=== PATIENT | female | born 1970 | race Caucasian/White ===

== ENCOUNTER 2017-05-11 08:12 | Outpatient (CLI) | payer MEDICAID ==
[~2017-05-11] VITALS: Ht 154.9 cm; Wt 67.3 kg
--- NOTE | ~2017-05-11 | HEMODYNAMI ---
PATIENT:MANJIT JEAN MEDICAL RECORD: [id number] : 68 LOCATION:[facility] D.2116 ADMISSION DATE: 05/11/17 Generatedon:05/12/201710:27 Patient name: MANJIT JEAN Patient #: [id number] SSN: DO B: 1970 Date of study: 05/12/2017 Page: Of Hemodynamic Procedure Report Patient Data Patient Demographics Procedure consent was obtained First Name: MANJIT Gender: Female Last Name: MIRANDA : 1970 [facility] Initial: DEVORA Age: 46 year(s) Patient #: [id number] Race: Additional ID: [id number] Contact details Address: [address] [place] [address] State: [place] City: [place] Zip code: [address] Admission Admission Data Admission Date: 05/11/2017 Admission Time: 8:12 Room #: D.2116 Lab Results Lab Result Date: 05/11/2017 Lab Result Time: 0:00 Biochemistry Name Units Result Min Max BUN mg/dl 11 --(-*--)-- 7 18 Creatinine mg/dl 1.3 --(---*)-- 0.6 1.3 CBC Name Units Result Min Max Hemoglobin g/dl 13.7 --(*---)-- 13.5 17.5 Procedure Procedure Types Cath Procedure PCI Procedure Coronary Stent Initial Miscellaneous Procedures Moderate Sedation up to 15 minutes Procedure Description Procedure Date Procedure Date: 05/12/2017 Procedure Start Time: 10:14 Procedure End Time: 10:26 Procedure Staff Name Function Jonathan Peña MD Performing Physician Jefferson Schreiber RT Scrub Saravanan Saravia RN Nurse Puja Chapman RT Monitor Procedure Data Cath Procedure Fluoroscopy Diagnostic fluoroscopy Total fluoroscopy Time: 0.9 time: 0.9 min min Diagnostic fluoroscopy Total fluoroscopy dose: 157 dose: 157 mGy mGy Contrast Material Contrast Material Type Amount (ml) Isovue 300 25 Entry Location Entry Primary Successful Side Size Upsize Upsize Entry Closure Succes sful Closure Location (Fr) 1 (Fr) 2 (Fr) Remarks Device Remarks Femoral Right 6 Fr Exoseal artery Short Estimated blood loss: 5 ml Procedure Complications No complications Procedure Medications Medication Administration Route Dosage Oxygen NC 2 l/min Heparin Flush Bag added to field 2 bags (1000units/500ml NS) 0.9% NaCl I.V. 100 ml/hr Fentanyl I.V. 50 mcg Versed I.V. 1 mg Fentanyl I.V. 50 mcg Versed I.V. 1 mg Heparin Bolus I.V. 4000 units Hemodynamics Rest HGB: 13.7 (g/dl) Heart Rate: 67 (bpm) Snapshots Pre Cath Intra NCS Post Cath Vital Signs Time Heart Resp SPO2 NIBP (mmHg) Rhythm Pain Sedation Rate (ipm) (%) Status Level (bpm) 9:58:38 67 16 90 123/78(98) NSR 0 (11) 10(A) , No pain 10:02:44 65 18 97 130/77(97) NSR 0 (11) 10(A) , No pain 10:06:54 68 18 93 123/74(89) NSR 0 (11) 10(A) , No pain 10:11:03 68 17 93 105/69(86) NSR 0 (11) 10(A) , No pain 10:15:01 73 17 95 122/79(100) NSR 0 (11) 9(A) , No pain 10:19:07 75 17 93 112/77(92) NSR 0 (11) 9(A) , No pain 10:23:11 73 16 95 115/73(87) NSR 0 (11) 9(A) , No pain Medications Time Medication Route Dose Verified Delivered Reason Notes Effectiveness by by 10:05:04 Oxygen NC 2 Saravanan Coe Per physician l/min Manjit Saravia RN RN 10:05:13 Heparin Flush added 2 Saravanan Coe used for Bag to bags Manjit Saravia RN procedure (1000units/500ml field RN NS) 10:05:22 0.9% NaCl I.V. 100 Saravanan Saravanan Per physician ml/hr Manjit Saravia RN RN 10:05:35 Fentanyl I.V. 50 Saravanan Coe for sedation mcg Manjit Saravia RN RN 10:05:41 Versed I.V. 1 mg Saravanan Coe for sedation Manjit Saravia RN RN 10:14:24 Fentanyl I.V. 50 Saravanan Saravanan for sedation mcg Manjit Saravia RN RN 10:14:29 Versed I.V. 1 mg Saravanan Coe for sedation Manjit Saravia RN RN 10:15:48 Heparin Bolus I.V. 4000 Saravanan Coe for units Manjit Saravia RN anticoagulation human resource consultant Log Time Note 9:37:10 Puja Counts RT(R) sent for patient. Start room use. 9:37:11 Time tracking: Regular hours 9:37:15 Plan of Care:Hemodynamics will remain stable., Cardiac rhythm will remain stable., Comfort level will be maintained., Respiratory function will remain adequate., Patient/ family verbilizes understanding of procedure., Procedure tolerated without complication., Recovers from procedure without complications.. 9:47:23 Patient received from PCU to CCL 2 Alert and oriented. Tansferred to table in Supine position. 9:47:24 Warm blankets applied, and bayron hugger turned on for patient comfort. 9:47:25 Correct patient and procedure confirmed by team. 9:47:26 Signed procedure consent form obtained from patient. 9:47:29 ECG and BP/O2 sat monitors applied to patient. 9:57:31 Vital chart was started 9:57:32 Full Disclosure recording started 9:57:35 Rhythm: sinus rhythm 9:57:46 H&P Date Dictated: 05/06/2017 Within 30 days and on chart., H&P Addendum completed by physician on day of procedure. (MUST COMPLETE FOR ALL OUTPATIENTS). 9:57:48 Pre-procedure instructions explained to patient. 9:57:48 Pre-op teaching completed and patient verbalized understanding. 9:57:50 Family in patients room. 9:57:52 Patient NPO since Midnight. 9:57:56 Is the patient allergic to Iodine/contrast media? No. 9:57:57 Is patient on blood thinner?Yes 9:58:00 ACC The patient was administered the following blood thiners within the last 24 hours: ACCPlavix 9:58:14 Patient diabetic? Yes. 9:58:20 If diabetic: On Metformin? Yes 9:58:25 If on Metformin: Last Dose? 05/08/2017 9:58:28 Previous problem with sedation/anesthesia? No ? 9:58:29 Snore? Yes 9:58:30 Sleep apnea? No 9:58:31 Deviated septum? No 9:58:32 Opens mouth fully? Yes 9:58:33 Sticks out tongue? Yes 9:58:35 Airway obstruction? No ? 9:58:36 Dentures? No ? 9:58:39 Pre procedure: right dorsailis pedis pulse 2+ Normal; easily identifiable; not easily obliterated 9:58:40 Patient pain scale 0/10 ?. 9:58:48 IV patent on arrival in left hand with 0.9% NaCl at [facility]. 9:58:51 Lab results completed and on chart. 9:58:54 Right groin area was prepped with chlora-prep and draped in sterile fashion 9:58:55 Alarms reviewed by R. N. 9:58:55 Sharps counted by scrub and verified by R.N. 9:58:58 Use device set Femoral PCI 9:58:59 Acist Syringe opened to sterile field. 9:58:59 Acist Hand Control opened to sterile field. 9:59:00 Bag Decanter opened to sterile field. 9:59:00 Medline Cath Pack opened to sterile field. 9:59:00 Terumo 6Fr Magalia Sheath opened to sterile field. 9:59:01 St Spencer 260cm J .035 wire opened to sterile field. 9:59:01 Merit BasixCompak Inflation Kit opened to sterile field. 9:59:01 Acist Manifold opened to sterile field. 9:59:02 Tegaderm 4 x 4 opened to sterile field. 10:04:04 Final Timeout: patient, procedure, and site verified with staff and physician. All members of the team are in agreement. 10:04:06 Right groin site verified by team. 10:04:08 Physical assessment completed. ASA score P 2 - A patient with mild systemic disease as per Jonathan Peña MD. 10:04:10 Sedation plan: IV Moderate Sedation Versed, Fentanyl 10:05:04 Oxygen 2 l/min NC was administered by Saravanan Saravia RN; Per physician; 10:05:13 Heparin Flush Bag (1000units/500ml NS) 2 bags added to field was administered by Saravanan Saravia RN; used for procedure; 10:05:22 0.9% NaCl 100 ml/hr I.V. was administered by Saravanan Saravia RN; Per physician; 10:05:35 Fentanyl 50 mcg I.V. was administered by Saravanan Saravia RN; for sedation; 10:05:41 Versed 1 mg I.V. was administered by Saravanan Saravia RN; for sedation; 10:05:55 Zero performed for pressure channel P1 10:06:00 Zero performed for pressure channel P1 10:06:12 Baseline sample Acquired. 10:14:24 Fentanyl 50 mcg I.V. was administered by Saravanan Saravia RN; for sedation; 10:14:29 Versed 1 mg I.V. was administered by Saravanan Saravia RN; for sedation; 10:14:35 Procedure started. 10:14:37 Local anesthetic to right femoral artery with Lidocaine 2% by Jonathan Peña MD.INITIAL ACCESS ONLY 10:14:44 Cordis 6FR XBLAD 3.5 guide catheter opened to sterile field. 10:14:55 A 6 Fr Short sheath was inserted into the Right Femoral artery 10:15:28 6 Fr XBLAD 3.5 guide catheter was inserted over the wire 10:15:48 Heparin Bolus 4000 units I.V. was administered by Saravanan Saravia RN; for anticoagulation; 10:16:51 Whisper wire advanced. 10:18:09 Inflation Number: 1 A Medtronic Integrity 2.5 x 14 stent was prepped and advanced across the Prox CX. The stent was deployed at 15 BAKARI for 0:08 (min:sec). 10:18:20 Stent catheter was removed intact over wire. 10:18:21 Wire removed. 10:18:21 Guide catheter removed. 10:18:29 Sheath removed intact; hemostasis achieved with Exoseal to the Right Femoral artery. 10:18:36 Cordis 6Fr Exoseal opened to sterile field. 10:18:39 Procedure ended.(Physican Out) 10:19:02 Fluoroscopy time 00.90 minutes. 10:19:05 Flurop Dose total: 157 10:19:05 Fluoroscopy dose: 157 mGy 10:19:08 Contrast amount:Isovue 300 25ml. 10:19:09 Sharps counted by scrub and verified by R.N. 10:19:10 Insertion/operative site no bleeding no hematoma. 10:19:13 Post-op/insertion site Right Femoral artery dressed using a 4 x 4 and Tegaderm. 10:20:28 Post right femoral artery:stable, clean and dry 10:20:29 Post Procedure Pulses reassessed and unchanged 10:20:36 Post-procedure physical assessment completed. ASA score P 2 - A patient with mild systemic disease as per Jonathan Peña MD. 10:20:38 Post procedure rhythm: unchanged. 10:20:43 Estimated blood loss: 5 ml 10:20:44 Post procedure instruction explained to patient.Patient verbalizes understanding. 10:20:44 Patient needs reinforcement of post procedure teaching. 10:20:56 Procedure type changed to Cath procedure, PCI procedure, Coronary Stent Initial, Miscellaneous Procedures, Moderate Sedation up to 15 minutes 10:21:01 Procedure Complication : No complications 10:21:03 See physician's report for complete and final results. 10:21:38 Garcia Whisper J 300cm 0.014 guide wire opened to sterile field. 10:21:59 Procedure and supply charges have been captured, reviewed, submitted and are correct. 10:26:27 Vital chart was stopped 10:26:41 Report given to PCU. 10:26:44 Patient transfered to PCU with Bed. 10:26:46 Procedure ended. 10:26:46 Full Disclosure recording stopped 10:26:51 End room use (Document Last) Intervention Summary Intervention Notes Time ActionType Lesion and Equipment Action# Pressure Duration Attributes Used 10:18:09 Place stent Prox CX Medtronic 1 15 00:08 Integrity 2.5 x 14 stent Device Usage Item Name Manufacture Quantity Catalog Hospital Part Current Minimal L ot# / Number Charge Number Stock Stock Serial# Code Acist Acist 1 27747 236407 858556 169349 20 Syringe Medical [employer] Inc Acist Hand Acist 1 56423 917251 302594 856090 5 Control [employer] Inc Bag Microtek 1 2002S 360328 49014 328797 5 Global [employer] Inc. Medline Cardinal 1 [id number] 038610 83262 016437 5 Cath [employer] Terumo 6Fr Terumo 1 [id number] 316165 525009 072876 [address] Spencer 1 [id number] 064515 926962 789096 30 260cm J .035 wire Merit Merit 1 [id number] 053155 302816 741215 15 [facility] Medical Inflation Kit Acist Acist 1 39809 486158 103871 468709 5 [employer] Inc Tegaderm 4 3M 1 1626W 119639 614680 708914 5 x 4 Cordis 6FR Cardinal 1 [id number] 470511 591909 333436 10 XBLAD 3.5 Health guide catheter Medtronic Medtronic 1 [id number] 059872 860845 1 0 [id number] Integrity 2.5 x 14 stent Cordis 6Fr Cardinal 1 EX600 304820 527720 951190 10 [facility] Garcia 1 [id number] 067845 973629 834947 5 [facility] J Vascular 300cm 0.014 guide wire Signature Audit Mancos Stage Time Signature Unsigned Intra-Procedure 05/12/2017 Puja 10:27:05 AM Counts RT(R) Signatures Monitor : Puja Signature : Counts RT Date : Time : [id number] [place] [address]
--- NOTE | ~2017-05-11 | HEMODYNAMI ---
PATIENT:MANJIT JEAN MEDICAL RECORD: [id number] : 68 LOCATION:D.CAT ADMISSION DATE: 05/11/17 Generatedon:05/11/201713:03 Patient name: MANJIT JEAN Patient #: [id number] SSN: DO B: 1970 Date of study: 05/11/2017 Page: Of Hemodynamic Procedure Report Patient Data Patient Demographics Procedure consent was obtained First Name: MANJIT Gender: Female Last Name: MIRANDA : 1970 [facility] Initial: DEVORA Age: 46 year(s) Patient #: [id number] Race: Unknown Additional ID: [id number] Contact details Address: [address] [place] [address] State: [place] City: [place] Zip code: [address] Admission Admission Data Admission Date: 05/11/2017 Admission Time: 8:12 Lab Results Lab Result Date: 05/11/2017 Lab Result Time: 0:00 Biochemistry Name Units Result Min Max BUN mg/dl 11 --(-*--)-- 7 18 Creatinine mg/dl 1.3 --(---*)-- 0.6 1.3 CBC Name Units Result Min Max Hemoglobin g/dl 13.7 --(*---)-- 13.5 17.5 Procedure Procedure Types Cath Procedure Diagnostic Procedure [facility] w/Coronaries PCI Procedure Coronary Stent Initial Miscellaneous Procedures Moderate Sedation up to 15 minutes Procedure Description Procedure Date Procedure Date: 05/11/2017 Procedure Start Time: 12:32 Procedure End Time: 13:03 Procedure Staff Name Function Jonathan Peña MD Performing Physician Saravanan Saravia RN Nurse Duke Dunn RT Monitor Gay Gutierrez RT Scrub Procedure Data Cath Procedure Fluoroscopy Diagnostic fluoroscopy Total fluoroscopy Time: 3.2 time: 3.2 min min Diagnostic fluoroscopy Total fluoroscopy dose: 730 dose: 730 mGy mGy Contrast Material Contrast Material Type Amount (ml) Isovue 300 86 Entry Location Entry Primary Successful Side Size Upsize Upsize Entry Closure Ramírez ccessful Closure Location (Fr) 1 (Fr) 2 (Fr) Remarks Device Remarks Radial Right 6 Fr Mechanical artery Short Compression Estimated blood loss: 10 ml Diagnostic catheters Device Type Used For End Catheter Placement Diagnostic Terumo 5Fr Procedure Rollingstone 110cm catheter Procedure Complications No complications Procedure Medications Medication Administration Route Dosage Oxygen NC 2 l/min Heparin Flush Bag added to field 2 bags (1000units/500ml NS) 0.9% NaCl I.V. 100 ml/hr Radial Cocktail added to field 1 syringe (Verapomil 2mg/Nitro 400mcg/Heparin 1500units) Fentanyl I.V. 50 mcg Versed I.V. 1 mg Fentanyl I.V. 50 mcg Versed I.V. 1 mg Radial Cocktail I.A. 1 syringe (Verapomil 2mg/Nitro 400mcg/Heparin 1500units) Heparin Bolus I.V. 4000 units Integrilin (Bolus I.V. 6.2 ml 2mg/ml) Integrilin (Bolus wasted 3.8 ml 2mg/ml) Plavix P.O. 600 mg Hemodynamics Rest HGB: 13.7 (g/dl) Heart Rate: 69 (bpm) Snapshots Pre Cath Intra NCS Post Cath Vital Signs Time Heart Resp SPO2 NIBP (mmHg) Rhythm Pain Sedation Rate (ipm) (%) Status Level (bpm) 12:22:09 70 18 93 122/80(92) NSR 0 (11) 10(A) , No pain 12:26:21 68 17 94 121/74(111) NSR 0 (11) 10(A) , No pain 12:30:29 71 20 95 112/67(80) NSR 0 (11) 9(A) , No pain 12:34:43 74 20 96 99/51(85) NSR 0 (11) 9(A) , No pain 12:39:01 69 21 94 96/48(76) NSR 0 (11) 9(A) , No pain 12:43:09 67 19 94 94/52(75) NSR 0 (11) 9(A) , No pain 12:47:19 67 20 95 98/47(67) NSR 0 (11) 10(A) , No pain 12:51:27 72 10 95 111/56(89) NSR 0 (11) 10(A) , No pain 12:55:38 71 18 92 108/62(82) NSR 0 (11) 10(A) , No pain 12:59:48 70 13 94 110/62(81) NSR 0 (11) 10(A) , No pain Medications Time Medication Route Dose Verified Delivered Reason Note s Effectiveness by by 12:21:56 Oxygen NC 2 l/min Saravanan Coe Per physician Manjit Saravia RN RN 12:22:04 Heparin Flush added 2 bags Saravanan Coe used for Bag to Manjit Saravia RN procedure (1000units/500ml field RN NS) 12:22:12 0.9% NaCl I.V. 100 Saravanan Saravanan Per physician ml/hr Manjit Saravia RN RN 12:22:27 Radial Cocktail added 1 Saravanan Crooky used for (Verapomil to syringe Manjit Saravia RN procedure 2mg/Nitro field RN 400mcg/Heparin 1500units) 12:28:38 Fentanyl I.V. 50 mcg Saravanan Crooky for sedation Manjit Saravia RN RN 12:28:44 Versed I.V. 1 mg Saravanan Crooky for sedation Manjit Saravia RN RN 12:31:25 Fentanyl I.V. 50 mcg Saravanan Coe for sedation Manjit Saravia RN RN 12:31:28 Versed I.V. 1 mg Saravanan Coe for sedation Manjit Saravia RN RN 12:33:27 Radial Cocktail I.A. 1 Saravanan Maravillarey for (Verapomil syringe Manjit Peña MD vasodilation 2mg/Nitro RN 400mcg/Heparin 1500units) 12:39:36 Heparin Bolus I.V. 4000 Saravanan Coe for units Manjit Saravia RN anticoagulation RN 12:40:41 Integrilin I.V. 6.2 ml Saravanan Coe for (Bolus 2mg/ml) Manjit Saravia RN antiplatelet RN therapy 12:40:51 Integrilin wasted 3.8 ml Saravanan Coe for (Bolus 2mg/ml) Manjit Saravia RN antiplatelet RN therapy 12:46:44 Plavix P.O. 600 mg Saravanan Coe for Manjit Saravia RN antiplatelet RN therapy Procedure Log Time Note 11:55:56 Saravanan Saravia RN sent for patient. Start room use. 12:02:57 Time tracking: Regular hours 12:03:00 Plan of Care:Hemodynamics will remain stable., Cardiac rhythm will remain stable., Comfort level will be maintained., Respiratory function will remain adequate., Patient/ family verbilizes understanding of procedure., Procedure tolerated without complication., Recovers from procedure without complications.. 12:04:21 H&P Date Dictated: 05/06/2017 Within 30 days and on chart., H&P Addendum completed by physician on day of procedure. (MUST COMPLETE FOR ALL OUTPATIENTS). 12::42 Lab Result : Creatinine 1.3 mg/dl 12::42 Lab Result : BUN 11 mg/dl 12::42 Lab Result : Hemoglobin 13.7 g/dl 12:05:51 Lab results completed and on chart. 12:17:32 Patient received from Pre/Post Procedure Room to CCL 1 Alert and oriented. Tansferred to table in Supine position. 12:17:33 Warm blankets applied, and bayron hugger turned on for patient comfort. 12:17:33 Correct patient and procedure confirmed by team. 12:17:34 Signed procedure consent form obtained from patient. 12:17:35 ECG and BP/O2 sat monitors applied to patient. 12:21:09 Vital chart was started 12:21:56 Oxygen 2 l/min NC was administered by Saravanan Saravia RN; Per physician; 12:22:04 Heparin Flush Bag (1000units/500ml NS) 2 bags added to field was administered by Saravanan Saravia RN; used for procedure; 12:22:12 0.9% NaCl 100 ml/hr I.V. was administered by Saravanan Saravia RN; Per physician; 12:22:27 Radial Cocktail (Verapomil 2mg/Nitro 400mcg/Heparin 1500units) 1 syringe added to field was administered by Saravanan Saravia RN; used for procedure; 12:24:59 Baseline sample Acquired. 12:25:04 Rhythm: sinus rhythm 12:25:06 Full Disclosure recording started 12:25:08 Pre-procedure instructions explained to patient. 12:25:08 Pre-op teaching completed and patient verbalized understanding. 12:25:10 Family in waiting room. 12:25:12 Patient NPO since Midnight. 12:25:15 Is the patient allergic to Iodine/contrast media? No. 12::33 Is patient on blood thinner?No 12:25:34 Patient diabetic? Yes. 12:25:36 If diabetic: On Metformin? Yes 12:25:49 If on Metformin: Last Dose? 05/08/2017 12:25:52 Patient not . Patient has had hysterectomy. 12:25:56 Previous problem with sedation/anesthesia? No ? 12:25:57 Snore? Yes 12:25:58 Sleep apnea? No 12:25:58 Deviated septum? No 12:25:59 Opens mouth fully? Yes 12:26:00 Sticks out tongue? Yes 12:26:01 Airway obstruction? No ? 12:26:02 Dentures? No ? 12:26:05 Pre procedure: right dorsailis pedis pulse 1+ Palpable, but thready & weak; easily obliterated 12:26:07 Modified Obi's test Ulnar < 7 seconds 12:26:13 Patient pain scale 0/10 ?. 12:26:18 IV patent on arrival in left forearm with 0.9% NaCl at O. 12:26:22 Right Radial & Right Groin area was prepped with chlora-prep and draped in sterile fashion 12:26:23 Alarms reviewed by R. N. 12:26:24 Sharps counted by scrub and verified by R.N. 12:26:25 --------ALL STOP TIME OUT------ 12:26:25 Final Timeout: patient, procedure, and site verified with staff and physician. All members of the team are in agreement. 12:26:27 Right Radial & Right Groin site verified by team. 12:26:30 Physical assessment completed. ASA score P 2 - A patient with mild systemic disease as per Jonathan Peña MD. 12:26:34 Sedation plan: IV Moderate Sedation Versed, Fentanyl 12:28:14 Use device set Radial Dx 12:28:16 Tegaderm 4 x 4 opened to sterile field. 12:28:16 Acist Manifold opened to sterile field. 12:28:17 Acist Hand Control opened to sterile field. 12:28:18 Acist Syringe opened to sterile field. 12:28:19 Medline Cath Pack opened to sterile field. 12:28:19 Bag Decanter opened to sterile field. 12:28:19 Terumo 6Fr Slender Glidesheath opened to sterile field. 12:28:20 St Spencer 260cm J .035 wire opened to sterile field. 12:28:20 MBrace Wrist Support opened to sterile field. 12:28:38 Fentanyl 50 mcg I.V. was administered by Saravanan Saravia RN; for sedation; 12::44 Versed 1 mg I.V. was administered by Saravanan Saravia RN; for sedation; 12:30:06 Zero performed for pressure channel P1 12:30:08 Zero performed for pressure channel P1 12:31:25 Fentanyl 50 mcg I.V. was administered by Saravanan Sarvaia RN; for sedation; 12:31:28 Versed 1 mg I.V. was administered by Saravanan Saravia RN; for sedation; 12:32:24 Procedure started. 12:32:28 Local anesthetic to right radial artery with Lidocaine 2% by Jonathan Peña MD.INITIAL ACCESS ONLY 12:32:51 A 6 Fr Short sheath was inserted into the Right Radial artery 12:33:27 Radial Cocktail (Verapomil 2mg/Nitro 400mcg/Heparin 1500units) 1 syringe I.A. was administered by Jonathan Peña MD; for vasodilation; 12:33:56 A Diagnostic [employer]o 5Fr Rollingstone 110cm catheter was advanced over the wire and used for Procedure. 12:34:30 LV angiography performed. 12:34:31 LV gram done using MITCHELL 12:34:35 EF : 60 % 12:34:40 Injector settings: Ml/sec: 7, Volume: 15, 12:34:54 LCA angiography performed. 12:35:34 Garcia Xerographic Document Solutionsisper J 300cm 0.014 guide wire opened to sterile field. 12:35:34 Casenet BasixCompak Inflation Kit opened to sterile field. 12:38:39 RCA angiography performed. 12:38:40 Catheter exchanged over wire. 12:38:45 Bed called for by Samuel Aggarwal to Claims Vice President Kenrick. 12:38:50 Medtronic Launcher 6Fr AR 1.0 guide catheter opened to sterile field. 12:39:20 Study PCI Site: [place] PDA has 90% stenosis. 12:39:35 6 Fr AR 1 guide catheter was inserted over the wire 12:39:36 Heparin Bolus 4000 units I.V. was administered by Saravanan Saravia RN; for anticoagulation; 12:39:56 Whisper wire advanced. 12:40:05 Wire advanced across lesion. 12:40:41 Integrilin (Bolus 2mg/ml) 6.2 ml I.V. was administered by Saravanan Saravia RN; for antiplatelet therapy; 12:40:51 Integrilin (Bolus 2mg/ml) 3.8 ml wasted was administered by Saravanan Saravia RN; for antiplatelet therapy; 12:41:36 Inflation Number: 1 A Medtronic Integrity 2.5 x 14 stent was prepped and advanced across the R PDA. The stent was deployed at 13 BAKARI for 0:10 (min:sec). 12:41:47 ACC Post-intervention NIKI Flow is 3. 12:41:49 Stent catheter was removed intact over wire. 12:41:49 Wire removed. 12:41:50 Guide catheter removed. 12:41:59 Terumo TR Band Standard opened to sterile field. 12:42:17 Sheath removed intact; hemostasis achieved with Mechanical Compression to the Right Radial artery. 12:42:20 Procedure ended.(Physican Out) 12:42:42 Fluoroscopy time 03.20 minutes. 12:42:46 Fluoroscopy dose: 730 mGy 12:42:46 Flurop Dose total: 730 12:42:50 Contrast amount:Isovue 300 86ml. 12:43:05 Sharps counted by scrub and verified by R.N. 12:43:07 TR band inflated with 12cc of air. 12:43:09 Insertion/operative site no bleeding no hematoma. 12:43:14 Post Procedure Pulses reassessed and unchanged 12:43:19 Post-procedure physical assessment completed. ASA score P 2 - A patient with mild systemic disease as per Jonathan Peña MD. 12:43:22 Post procedure rhythm: unchanged. 12:43:24 Estimated blood loss: 10 ml 12:43:25 Post procedure instruction explained to patient.Patient verbalizes understanding. 12:43:26 Patient needs reinforcement of post procedure teaching. 12:43:33 Procedure type changed to Cath procedure, Diagnostic procedure, LHC, LHC w/Coronaries, PCI procedure, Coronary Stent Initial, Miscellaneous Procedures, Moderate Sedation up to 15 minutes 12:43:35 Procedure and supply charges have been captured, reviewed, submitted and are correct. 12:43:37 Procedure Complication : No complications 12:46:44 Plavix 600 mg P.O. was administered by Saravanan Saravia RN; for antiplatelet therapy; 13:02:52 House Superviser called and pt to be transfered to 2116. 13:02:53 Vital chart was stopped 13:02:54 See physician's report for complete and final results. 13:02:56 Report given to PCU. 13:02:58 Patient transfered to PCU with Bed. 13:03:01 Procedure ended. 13:03:01 Full Disclosure recording stopped 13:03:05 End room use (Document Last) Intervention Summary Intervention Notes Time ActionType Lesion and Equipment Action# Pressure Duration Attributes Used 12:41:36 Place stent R PDA Medtronic 1 13 00:10 Integrity 2.5 x 14 stent Device Usage Item Name Manufacture Quantity Catalog Hospital Part Current Minimal Lot# / Number Charge Number Stock Stock Serial# Code Tegaderm 4 3M 1 [id number] 390101 612521 5 x 4 Acist Acist 1 39114 252253 572505 744448 5 Manifold Medical Systems ParentPlus Acist Hand Acist 1 44452 160018 270180 890692 5 Control Medical Systems ParentPlus Acist Acist 1 00972 779038 019930 238148 20 Syringe Medical Systems Inc Medline Cardinal 1 [id number] 695667 07664 318475 5 Cath Pack Health Bag Microtek 1 2002S 985509 93840 556564 5 [employer] Inc. Terumo 6Fr Terumo 1 [id number] 049472 161214 548823 [address] St Spencer 1 310691 286118 603292 143919 30 260cm J .035 wire MBrace Advanced 1 140-0250-00 172572 94637 305428 5 Wrist Vascular Support Dynamics Diagnostic Terumo 1 01-5592 918428 177004 053517 5 Terumo 5Fr Rollingstone 110cm catheter Garcia Garcia 1 [id number] 207906 786051 080770 5 Whisper J Vascular 300cm 0.014 guide wire Merit Merit 1 [id number] 504883 379732 987679 15 Captronic SystemsixEmpower Futuresinb3 bio Medical Inflation Kit Medtronic Medtronic 1 [id number] 252781 22666 291828 1 Launcher 6Fr AR 1.0 guide catheter Medtronic Medtronic 1 [id number] 538968 496966 2 [id number] Integrity 2.5 x 14 stent Terumo TR Terumo 1 [id number] 300961 822741 255634 40 Band Standard Signature Audit Proctor Stage Time Signature Unsigned Intra-Procedure 05/11/2017 Duke Dunn 1:03:21 PM RT(R) Signatures Monitor : Duke Dunn RT Signature : Date : Time : [place] [id number] [place] [id number]
[2017-05-11] MEDS ORDERED: ZOLOFT100 MG PO (08:56)
[2017-05-11] MEDS ORDERED: OXYCODONE HCL10 MG PO (08:56)
[2017-05-11 08:57] LABS: BASOPHILS 0.3 % (0-2); EOSINOPHILS 1.4 % (0-7); HEMOGLOBIN 13.7 g/dL (12-16); IMMATURE GRANULOCYTES 0.3 % (0-5); MCHC 35.1 g/dL (31.0-37.0); MCV 79.8 fL (80.0-100.0); MEAN PLATELET VOLUME 10.6 fL (7.4-10.4); PLATELET COUNT 155 10x3/uL (130-400); RBC 4.89 10x6/uL (4.00-5.40); RDW 13.2 % (11.5-14.5); WBC 5.7 10x3/uL (4.8-10.8)
[2017-05-11] MEDS ORDERED: NEURONTIN600 MG PO ×2 (08:57→21:10)
[2017-05-11] MEDS ORDERED: GLUCOPHAGE500 MG PO (08:57)
[2017-05-11 09:04] VITALS: BP 132/84; BMI 28.0
[2017-05-11 09:17] LABS: ANION GAP 11.6 mmol/L (8-16); CALCIUM 9.2 mg/dL (8.5-10.1); CREATININE - SERUM 1.3 mg/dL (0.6-1.3); POTASSIUM - SERUM 3.6 mmol/L (3.5-5.1)
--- NOTE | 2017-05-11 09:27 | NUR ---
1924 DR BONILLA RETURNED PAGE AND IS NOTIFIED OF PT'S GLUCOSE OF 526. NEW ORDER RECEIVED FOR 12 UNITS OF HUMULIN R SQ X1 NOW. ORDER ENTERED INTO COMPUTER.
--- NOTE | 2017-05-11 10:53 | NUR ---
1040 FSBS 423, DR BONILLA NOTIFIED AND NEW ORDERS RECEIVED.
--- NOTE | 2017-05-11 13:32 | NUR ---
TRANSFER FROM FLOOR WORKER TRANSFER BAY. VS WNL. RIGHT WRIST STABLE WITH TR BAND INTACT. WILL MONITOR.
[2017-05-11 13:33] VITALS: BP 99/64; Ht 154.9 cm; Wt 67.3 kg
[2017-05-11 16:21] VITALS: BP 108/53
--- NOTE | 2017-05-11 16:33 | NUR ---
TR BAND DCD WITHOUT BLEEDING OR HEMATOMA NOTED.
[2017-05-11 20:16] VITALS: BP 155/65
[2017-05-12 08:00] VITALS: BP 125/74
--- NOTE | 2017-05-12 10:51 | NUR ---
BACK FROM MEDICAL EDUCATOR. VS WNL. RIGHT GROIN STABLE WITHOUT BLEEDING OR HEMATOMA NOTED. WILL MONITOR.
[2017-05-12 11:46] VITALS: BP 113/72
[2017-05-12] MEDS ORDERED: ASPIRIN81 MG PO (11:55)
[2017-05-12] MEDS ORDERED: PLAVIX75 MG PO (11:55)
--- NOTE | 2017-05-12 14:03 | NUR ---
BED REST UP. GROIN STABLE.
--- NOTE | 2017-05-12 15:05 | NUR ---
IV AND TELEMETRY DCD. DC PLANS GIVEN. UNDERSTANDING VOICED. ESCORTED TO CAR BY W/C.
--- NOTE | 2017-05-14 09:41 | OP ---
PATIENT NAME: MANJIT JEAN MEDICAL RECORD: [id number] :68 LOCATION:D.CAT ADMISSION DATE: SURGEON: TYREL BONILLA MD DATE OF OPERATION: 05/12/2017 PROCEDURES: 1. PTCA stent left circumflex. 2. Selective coronary angiography. INDICATION: Angina and coronary artery disease. PROCEDURE IN DETAIL: After informed consent was obtained and after a detailed explanation of the risks, benefits as well as alternative therapies, the patient elected to proceed with angiogram and angioplasty. The right femoral area was prepped and draped in normal sterile fashion. The right femoral artery was cannulated via modified Seldinger technique with placement of 6-Guamanian sheath. All catheters exchanged through this sheath. FINDINGS: The left circumflex has 80% stenosis proximally. This was addressed with a 2.5 x 14 mm Integrity stent. Result was 0% residual stenosis. OVERALL IMPRESSION: Successful percutaneous transluminal coronary angioplasty stent of the left circumflex going from 80% initial stenosis to 0% residual. TRANSINT:[id number] Voice Confirmation ID: [id number] DOCUMENT ID: [id number] TYREL BONILLA MD at 0941 CC: [id number] DICTATION DATE: 05/12/17 1026 LINGO CLEANER: 05/12/17 1258 [facility] CLI 05/12/17 [place] [address] [place] [address]
--- NOTE | 2017-05-14 09:41 | OP ---
PATIENT NAME: MANJIT JEAN MEDICAL RECORD: [id number] :68 LOCATION:D.CAT ADMISSION DATE: SURGEON: TYREL BONILLA MD DATE OF OPERATION: 05/11/2017 PROCEDURES: 1. PTCA stent RCA. 2. Left heart catheterization. 3. Selective coronary angiography. 4. Left ventriculogram. INDICATION: Unstable angina. PROCEDURE IN DETAIL: After informed consent was obtained and after detailed explanation of risks, benefits as well as alternative therapies, the patient elected to proceed with angiogram and angioplasty. The right radial area was prepped and draped in normal sterile fashion. The right radial artery was cannulated via modified Seldinger technique with placement of a 6-[place]az[place] sheath. All catheters exchanged through this sheath. FINDINGS: Left ventriculogram was performed in standard 30-degree MITCHELL view, reveals good cardiac wall motion, ejection fraction is 60%. SELECTIVE CORONARY ANGIOGRAPHY: 1. Left main showed no significant angiographic disease. 2. Left anterior descending has mild irregularities, but no flow-limiting stenosis. 3. The left circumflex is 70% to 80% stenosis proximally. 4. The right coronary has a 90% stenosis of the PDA. PTCA STENT OF THE RIGHT CORONARY PDA: Stent used was a 2.5 x 14 mm Integrity. Result was 0% residual stenosis. OVERALL IMPRESSION: Successful percutaneous transluminal coronary angioplasty stent of the right coronary artery going from 90% initial stenosis to 0% residual. PLAN: PTCA stent of the left circumflex in the near future. TRANSINT:[id number] Voice Confirmation ID: [id number] DOCUMENT ID: [id number] TYREL BONILLA MD at 0941 CC: [id number] DICTATION DATE: 05/11/17 1248 PROPERTY CUSTODIAN: 05/11/17 1427 [facility] CLI 05/12/17 [place] [address]
--- NOTE | 2017-05-14 09:41 | DS ---
PATIENT:MANJIT JOYA :68 MEDICAL RECORD: [id number] DISCHARGE SUMMARY ADMISSION DATE: 05/11/17 DISCHARGE DATE: 05/12/17 DATE OF DISCHARGE: 05/12/2017. DISCHARGE DIAGNOSES: 1. Unstable angina. 2. Coronary artery disease. 3. PTCA stent RCA and left circumflex this admission. HOSPITAL COURSE: Ms. Joya presents with unstable anginal symptomatology, found to have 2-vessel coronary artery disease of the RCA and left circumflex, underwent successful PTCA stent of above territories and was discharged home with the addition of aspirin and Plavix to her medical regimen. We will follow up with [facility] in 1 month. TRANSINT:[id number] Voice Confirmation ID: [id number] DOCUMENT ID: [id number] TYREL BONILLA MD at 0941 CC: [id number] DICTATION DATE: 05/12/17 1026 ELECTRO OPTICS ENGINEER: 05/12/172056 [facility] CLI 05/12/17 [place] [id number] [place] [address]
== END 2017-05-12 15:07 | disposition home or self-care (01) ==
LOC: D.CATH 08:12 → D.M2 08:12 → D.CATH 10:30 → D.M2 13:27 → D.CATH 05-12 15:07
PROVIDERS: Internal Medicine Interventional Cardiology
DX: I25.110 Atherosclerotic heart disease of native coronary artery with unstable angina pectoris (principal); Z01.812 Encounter for preprocedural laboratory examination